=== PATIENT | male | born 1960 | race Caucasian/White ===

== ENCOUNTER 2017-04-03 19:19 | Emergency (ER) | payer MEDICARE, OTHER ==
[~2017-04-03] VITALS: Ht 167.6 cm; Wt 65.8 kg
--- NOTE | ~2017-04-03 | CR63 ---
[facility]. [facility] A Service of [facility] & [facility] RADIOLOGY TEXT RESULTS PATIENT: DORA MILLER LOCATION: SED : 64 UNIT #: [id number] AGE: [address]: JORJE TABARES SEX: M ORDER DR: [id number] [place] [id number] E MR#: [id number] Acc #: [id number] NAME: DORA MILLER : 1960 SEX: M STUDY DATE/TIME: 04/03/2017 21:36 UNIT: SED ROOM: STUDY DESCRIPTION: CR Chest 2 View Attending Physician: Jorje Tabares R.N. Ordering Physician: Jorje Tabares R.N. Primary Care Physician: [facility] MEDICAL IMAGING REPORT This report is preliminary unless electronic signature is present. EXAM Two-view chest 04/03/2017. HISTORY 57-year-old male with shortness of air and cough for 4 days. COMPARISON None. FINDINGS Two views of the chest demonstrate clear lungs. No pleural effusion or pneumothorax. Heart size and mediastinum are normal. Pulmonary vasculature normal. IMPRESSION No acute cardiopulmonary findings. Dictated by... James Hannah M.D. THIS IS AN ELECTRONICALLY VERIFIED REPORT James Hannah M.D. at 04/04/2017 4:14 PM RAYA/linda TD: 04/04/2017 09:28 JOB #: [id number] MEDICAL IMAGING REPORT Page 1 of 1
--- NOTE | ~2017-04-03 | CT4 ---
[facility] A Service [facility] RADIOLOGY TEXT RESULTS PATIENT: DORA MILLER LOCATION: SED : 64 UNIT #: [id number] AGE: [address]: JORJE TABARES SEX: M ORDER DR: [id number] [place] [id number] E MR#: [id number] Acc #: [id number] NAME: DORA MILLER. : 1960 SEX: M STUDY DATE/TIME: 04/03/2017 21:44 UNIT: SED ROOM: STUDY DESCRIPTION: CT Abd and Pelv Wo Cont Attending Physician: Jorje Tabares R.N. Ordering Physician: Jorje Tabares R.N. Primary Care Physician: [facility] MEDICAL IMAGING REPORT This report is preliminary unless electronic signature is present. EXAM CT abdomen and pelvis without contrast. INDICATIONS Right upper quadrant abdominal pain, nausea, vomiting, shortness of air and cough for the past [address] of the abdomen and pelvis. This CT exam was performed with one or more of the following radiation dose reduction techniques: automatic exposure control, adjustment of mA and/or kV according to patient size, and iterative reconstruction. COMPARISON None. FINDINGS Abdomen without contrast: Included lung bases are clear. There is generalized gallbladder wall thickening. There are a few tiny calculi in the gallbladder. No appreciable biliary dilation. Possible mild periportal edema. Otherwise the liver and spleen are unremarkable. The kidneys, adrenal glands, pancreas are unremarkable. The bowel loops are nondilated. Visualized portions appendix are unremarkable. Pelvis without contrast: There is a trace amount of fluid in the pelvis. No pelvic mass. No aggressive appearing bone lesion. IMPRESSION Diffuse gallbladder wall thickening with a few small radiodense stones [facility] A Service of [facility] RADIOLOGY TEXT RESULTS PATIENT: DORA MILLER LOCATION: SED : 64 UNIT #: [id number] AGE: [address]: JORJE TABARES SEX: M ORDER DR: seen in the gallbladder. Findings are suspicious for acute cholecystitis. Gallbladder wall thickening could also be reactive to adjacent liver inflammation. Correlate with liver enzyme levels. Dictated by... Afshin Goodman M.D. THIS IS AN ELECTRONICALLY VERIFIED REPORT Afshin Goodman M.D. at 04/04/2017 9:57 PM KYLAHD/felicia TD: 04/04/2017 10:54 JOB #: [id number] MEDICAL IMAGING REPORT Page 1 of 1
[~2017-04-03 19:19] MED LIST: FLEXERIL
[2017-04-03] MEDS ORDERED: MORPHINE SULFAT30 M3 PO (19:49)
[2017-04-03] MEDS ORDERED: PERCOCET10 PO (19:50)
[2017-04-03 21:29] LABS: URINE SOURCE CLEAN CATCH
[2017-04-03 21:33] LABS: MICRO INDICATED? NO; URINE APPEARANCE HAZY; URINE BILIRUBIN POS (NEG); URINE BLOOD NEG (NEG); URINE COLOR YELLOW; URINE GLUCOSE NEG (NORM); URINE KETONE NEG (NEG); URINE LEUKOCYTE ESTERASE NEG (NEG); URINE NITRATE NEG (NEG); URINE PROTEIN TRACE (NEG)
[2017-04-03 21:42] LABS: BASOPHIL% 0.7 % (0-2.5); DIFF IND NO; EOSINOPHIL% 0.3 % (0.0-7.0); HEMATOCRIT 46.2 % (38.0-50.0); HEMOGLOBIN 15.9 gm/dL (13.0-16.0); LYMPHOCYTE# 1.9 X10e3 (1.0-3.5); LYMPHOCYTE% 42.8 % (17.0-45.0); MEAN CELL VOLUME 95.1 FL (83-96); MEAN CORPUSCULAR HEMOGLOBIN 32.7 PG (28-34); MEAN CORPUSCULAR HGB CONC 34.4 g/dL (30-36); MEAN PLATELET VOLUME 9.9 FL (6.5-11.5); MONOCYTE# 0.7 X10e3 (0-1.0); MONOCYTE% 15.7 % (3.0-12.0); NEUTROPHIL# 1.8 X10e3 (1.5-7.1); NEUTROPHIL% 40.5 % (40-75); PLATELET COUNT 79 X10e3 (140-420); RED BLOOD COUNT 4.85 X10e (3.90-5.60); RED CELL DISTRIBUTION WIDTH 13.6 % (11.0-15.5); WHITE BLOOD COUNT 4.5 X10e3 (4.0-10.5)
[2017-04-03 21:43] LABS: AMPHETAMINE NEG (NEG); BARBITURATES NEG (NEG); BENZODIAZEPINES NEG (NEG); COCAINE POS (NEG); MARIJUANA NEG (NEG); OPIATES NEG (NEG); TRICYCLIC ANTIDEPRESSANTS NEG (NEG); U METHADONE NEG (NEG)
[2017-04-03 22:02] LABS: ALBUMIN SERUM 3.3 g/dL (3.5-5.0); BILIRUBIN, DIRECT 2.3 mg/dL (0.0-0.2); BILIRUBIN,INDIRECT 1.9 mg/dL (0.0-0.9); BILIRUBIN,TOTAL 4.2 mg/dL (0.2-2.0); BUN/CREATININE RATIO 12.85; CALCIUM SERUM 8.4 mg/dL (8.4-10.2); CREATININE SERUM 0.7 mg/dL (0.6-1.4); GLOM FILT RATE Estimated 106.3 mL/min (>60); POTASSIUM 3.5 mmol/L (3.5-5.1); PROTEIN TOTAL SERUM 6.3 g/dL (6.0-8.3)
[2017-04-04 07:31] LABS: BASOPHIL# 0.1 X10e3 (0-0.3); BASOPHIL% 1.3 % (0-2.5); EOSINOPHIL% 0.2 % (0.0-7.0); HEMATOCRIT 41.8 % (38.0-50.0); HEMOGLOBIN 14.4 gm/dL (13.0-16.0); LYMPHOCYTE# 1.9 X10e3 (1.0-3.5); LYMPHOCYTE% 47.8 % (17.0-45.0); MEAN CELL VOLUME 95.1 FL (83-96); MEAN CORPUSCULAR HEMOGLOBIN 32.7 PG (28-34); MEAN CORPUSCULAR HGB CONC 34.4 g/dL (30-36); MONOCYTE# 0.6 X10e3 (0-1.0); MONOCYTE% 14.9 % (3.0-12.0); NEUTROPHIL# 1.4 X10e3 (1.5-7.1); NEUTROPHIL% 35.8 % (40-75); PLATELET COUNT 67 X10e3 (140-420); RED CELL DISTRIBUTION WIDTH 14.1 % (11.0-15.5)
[2017-04-04 07:37] LABS: DIFF IND NO
[2017-04-04 07:57] LABS: ALBUMIN SERUM 2.9 g/dL (3.5-5.0); BILIRUBIN,TOTAL 3.7 mg/dL (0.2-2.0); BUN/CREATININE RATIO 11.11; CALCIUM SERUM 7.9 mg/dL (8.4-10.2); CREATININE SERUM 0.9 mg/dL (0.6-1.4); GLOM FILT RATE Estimated 95.8 mL/min (>60); POTASSIUM 3.5 mmol/L (3.5-5.1); PROTEIN TOTAL SERUM 5.7 g/dL (6.0-8.3)
[2017-04-08 19:11] LABS: HA AB IGM (HEPPAN) Nonreactive (()); HB CORE AB IGM (HEPPAN) Nonreactive (Nonreactive); HB S AG (HEPPAN) Nonreactive (Nonreactive); HEP C AB (HEPPAN) Reactive (Nonreactive)
== END 2017-04-04 08:20 ==
LOC: SED 19:19
PROVIDERS: Nurse Practitioner
DX: R16.0 Hepatomegaly, not elsewhere classified (principal); K80.10 Calculus of gallbladder with chronic cholecystitis without obstruction; K21.9 Gastro-esophageal reflux disease without esophagitis; I10 Essential (primary) hypertension; K44.9 Diaphragmatic hernia without obstruction or gangrene; F17.210 Nicotine dependence, cigarettes, uncomplicated; Z98.890 Other specified postprocedural states
CPT/HCPCS: 36415; 71020; 74176; 80048; 80053; 80074; 80076; 80307; 81003; 82150; 83690; 85025; 87040; 87522; 96361; 96374; 99285; C9113; J2543; J2765